=== PATIENT | female | born 1945 | race Caucasian/White ===

== ENCOUNTER → 2017-05-22 | Outpatient (CLI) | payer MEDICARE, OTHER ==
[~2017-05-22] MED LIST: ALBUTEROL0.09 MG/A1 IH; AMBIEN 10MG10 MG PO; AMITRIPTYLINE H50 M1 PO; ASPIRIN E.C. 8181 MG PO; BENICAR40 MG PO; CALTRATE 600 +1 TAB PO; CELEBREX200 MG PO; CETIRIZINE10 MG PO; FERROUS SU325 MG/TAB PO; FLAX SEED OIL1000 MG PO; FOLIC ACID PO; FOSAMAX 70MG TA70 MG PO; LASIX 20MG TABL20 MG PO; LASIX10 MG/M1 PO; LEVOTHYROXIN0.112 MG PO; LIPITOR40 MG PO; MIRAPEX PO; MVI PO; NORVASC 5MG5 MG/TAB PO; OXYCODONE5 M1 PO; OXYCONTIN10 MG PO; PREMARIN 0.60.625 MG PO; PROTONIX 40MG T40 MG PO; PROTONIX40 MG PO; PROVENTIL0.09 MG/A1 IH; REQUIP0.25 MG PO; RESTASIS0.05% OP; SAVELLA50 MG PO; SYNTHROID0.125 MG/T PO; TOPROL XL 50MG50 MG PO; VITAMIN B COMPLEX PO; VITAMIN C500 MG PO; Vitamin C PO; ZESTRIL 20MG TA20 MG PO; ZOCOR 20MG20 MG PO; ZOCOR20 MG PO; ZOLOFT100 MG PO; ZYRTEC 10MG10 MG PO
[2017-05-22 18:15] LABS: MEAN CELL VOLUME 88 fl (80.0-100.0); MEAN CORPUSCULAR HEMOGLOBIN 28 pg (27.0-31.0); MEAN CORPUSCULAR HGB CONC 32 g/dl (33.0-37.0); MEAN PLATELET VOLUME 9.2 fl (7.4-10.4); PLATELET COUNT 223 K/mm3 (130-400); RED BLOOD COUNT 4.19 M/mm3 (4.10-5.30); REDCELL DISTRIBUTION WIDTH-CV 13.2 % (11.5-14.5); WHITE BLOOD COUNT 7.4 K/mm3 (4.8-10.8)
[2017-05-22 18:16] LABS: HEMOGLOBIN 11.9 g/dl (12.5-16.0)
[2017-05-22 18:32] LABS: ERYTHROCYTE SEDIMENTATION RATE 10 mm/hr (0-30)
== END ==
LOC: COL.LAB 17:32
PROVIDERS: Orthopaedic Surgery
DX: M25.561 Pain in right knee (principal)

== ENCOUNTER → 2018-02-26 | Outpatient (CLI) | payer MEDICARE, OTHER ==
[2018-02-26 17:35] LABS: HEMOGLOBIN 12.2 g/dl (12.5-16.0); MEAN CELL VOLUME 90 fl (80.0-100.0); MEAN CORPUSCULAR HEMOGLOBIN 30 pg (27.0-31.0); MEAN CORPUSCULAR HGB CONC 33 g/dl (33.0-37.0); MEAN PLATELET VOLUME 9.6 fl (7.4-10.4); PLATELET COUNT 256 K/mm3 (130-400); RED BLOOD COUNT 4.06 M/mm3 (4.10-5.30)
[2018-02-26 17:36] LABS: HEMATOCRIT 36.5 % (37.0-47.0)
[2018-02-26 18:05] LABS: ERYTHROCYTE SEDIMENTATION RATE 13 mm/hr (0-30)
== END ==
LOC: COL.LAB 17:10
PROVIDERS: Nurse Practitioner
DX: M25.561 Pain in right knee (principal); M25.461 Effusion, right knee; Z96.651 Presence of right artificial knee joint

== ENCOUNTER → 2018-02-26 | Outpatient (CLI) | payer MEDICARE, OTHER ==
[2018-02-26 17:54] LABS: SYNOVIAL FL. MONONUCLEAR 65.6 % (0-75); SYNOVIAL FLUID RBC 19000 /mm3 (0-0); SYNOVIAL FLUID WBC 308 /mm3 (200-600)
[2018-02-26 18:59] LABS: SYNOVIAL FLUID APPEARANCE CLOUDY; SYNOVIAL FLUID COLOR BROWN
== END ==
LOC: ZCOL.LAB 17:13
PROVIDERS: Orthopaedic Surgery
DX: M25.561 Pain in right knee (principal)

== ENCOUNTER → 2018-03-16 | Outpatient (CLI) | payer MEDICARE, OTHER ==
[2018-03-16 12:29] LABS: HIV 1/2 Antibodies Non-Reactive; HIV-1p24 Antigen Non-Reactive
== END ==
LOC: COL.LAB 11:12
PROVIDERS: Orthopaedic Surgery
DX: Z01.812 Encounter for preprocedural laboratory examination (principal); M25.561 Pain in right knee

== ENCOUNTER 2019-03-29 12:51 | Outpatient (CLI) | payer MEDICARE, OTHER ==
[~2019-03-29] VITALS: Ht 149.9 cm; Wt 75.6 kg
[~2019-03-29 12:51] MED LIST changes: +LEVOXYL0.125 MG PO; +LIPITOR 40MG TA40 MG PO; +MOBIC15 MG PO; +NEURONTIN300 MG/CAP PO; +NORCO 325 MG-7.1 TAB PO; +RESTASIS 60VL OU; +ZESTRIL40 MG PO; +ZOLOFT 100MG100 MG PO
[2019-03-29 13:17] VITALS: BP 156/92; PULSE 54
[2019-03-29 14:40] VITALS: BP 161/68; PULSE 51
--- NOTE | 2019-03-29 14:40 | NUR ---
PATIENT ARRIVES TO [facility]. SHE IS LYING ON RIGHT SIDE. HOB AT 30 DEGREES. TOLERATING WELL. VS STABLE. WILL CONTINUE TO MONITOR. PUNCTURE SITE ASSESSED. BANDAID CLEAN AND DRY.
[2019-03-29 14:42] VITALS: BP 161/68; PULSE 55
[2019-03-29 15:00] VITALS: BP 144/57; PULSE 58
--- NOTE | 2019-03-29 16:00 | NUR ---
PATIENT ASSISTED OUT TO PATIENT ENTRANCE. SHE INSISTS ON AMBULATING WITH WALKER. SHE TOLERATES THIS WELL. SON PICKS PATIENT UP AND DRIVES HER HOME. DISCHARGE INSTRUCTIONS REVIEWED WITH PATIENT PRIOR TO DISCHARGING. SHE VERBALIZES UNDERSTANDING
== END 2019-03-29 16:00 | disposition home or self-care (01) ==
LOC: COL.RAD 12:51
DX: M48.02 Spinal stenosis, cervical region (principal); M54.41 Lumbago with sciatica, right side; G57.22 Lesion of femoral nerve, left lower limb; G60.9 Hereditary and idiopathic neuropathy, unspecified; M47.817 Spondylosis without myelopathy or radiculopathy, lumbosacral region; M48.061 Spinal stenosis, lumbar region without neurogenic claudication
CPT/HCPCS: Q9965

== ENCOUNTER 2019-07-04 18:28 | Emergency (ER) | payer MEDICARE, OTHER ==
[~2019-07-04] VITALS: Ht 149.9 cm; Wt 72.7 kg
[2019-07-04 18:37] VITALS: TEMP 98.3
[2019-07-04 19:22] LABS: BASO % 0.4 % (0.0-2.0); EOS % 0.2 % (0-4.0); GRAN # 8.9 (1.4-6.5); GRAN % 87.3 % (42.2-75.2); HEMATOCRIT 37.4 % (37.0-47.0); HEMOGLOBIN 12.3 g/dl (12.5-16.0); LYMPH # 0.8 (1.2-3.4); LYMPH % 8.1 % (20.0-51.0); MEAN CELL VOLUME 92 fl (80.0-100.0); MEAN CORPUSCULAR HEMOGLOBIN 30 pg (27.0-31.0); MEAN CORPUSCULAR HGB CONC 33 g/dl (33.0-37.0); MEAN PLATELET VOLUME 9.5 fl (7.4-10.4); MONO # 0.4 (0.1-0.6); MONO % 3.6 % (1.7-9.3); PLATELET COUNT 268 K/mm3 (130-400); RED BLOOD COUNT 4.05 M/mm3 (4.10-5.30); REDCELL DISTRIBUTION WIDTH-CV 12.1 % (11.5-14.5)
[2019-07-04 19:32] LABS: ALBUMIN 4.3 gm/dL (3.5-5.0); BILIRUBIN,TOTAL 0.5 mg/dL (0.0-1.0); CALCIUM 9.8 mg/dL (8.4-10.2); CREATININE, serum 0.67 (0.52-1.25); POTASSIUM 4.4 mmol/L (3.4-5.0); TOTAL PROTEIN 7.3 gm/dL (6.4-8.2)
[2019-07-04 19:36] LABS: PROTHROMBIN TIME 11.5 SECONDS (9.7-12.8)
[2019-07-04 19:39] LABS: PARTIAL THROMBOPLASTIN TIME 25.1 SECONDS (26.0-37.0)
[2019-07-04 20:50] VITALS: BP 165/85; PULSE 91
== END 2019-07-04 20:50 | disposition short-term general hospital (02) ==
LOC: COL.ER 18:28
PROVIDERS: Emergency Medicine
DX: I62.9 Nontraumatic intracranial hemorrhage, unspecified (principal); I10 Essential (primary) hypertension; E78.5 Hyperlipidemia, unspecified; E03.9 Hypothyroidism, unspecified; M79.7 Fibromyalgia; Z90.710 Acquired absence of both cervix and uterus; Z90.49 Acquired absence of other specified parts of digestive tract; Z90.89 Acquired absence of other organs; Z98.890 Other specified postprocedural states
CPT/HCPCS: J1953; J2405; J3010; J7030